=== PATIENT | female | born 1970 | race Caucasian/White ===

== ENCOUNTER → 2021-06-22 | Outpatient (CLI) | payer BC ==
[~2021-06-22] MED LIST: ASPIRIN EC81 MG PO; NORCO 7.5-3251 EACH PO; PREDNISONE 50 M50 MG PO
== END ==
LOC: LAB 13:04
DX: E11.9 Type 2 diabetes mellitus without complications (principal)
CPT/HCPCS: G0109

== ENCOUNTER → 2021-12-07 | Outpatient (CLI) | payer BC ==
[2021-12-07 17:57] LABS: BUN/CREATININE RATIO 22 (0-10)
[2021-12-09 13:14] LABS: CREATININE, URINE 42.1 mg/dL (Not Estab.); MICROALB/CREAT RATIO <7 (0-29)
== END ==
LOC: LAB 16:52
PROVIDERS: Family Medicine
DX: I10 Essential (primary) hypertension (principal); E11.9 Type 2 diabetes mellitus without complications
CPT/HCPCS: 36415; 80053; 80061; 82043; 82570; 83036